=== PATIENT | male | born 1985 | race African-American/Black ===

== ENCOUNTER 2016-06-28 20:38 | Emergency (ER) | payer SELFPAY ==
[2016-06-28] MEDS ORDERED: NS 0.9% 1000 ML* 1,000 ML IV ONE (21:12)
--- NOTE | 2016-06-28 21:24 | ED ---
Influenza-Like Illness - HPI Summary HPI Summary: 31M presents with cough for a week. He states the over the week his symptoms have gotten worst. He admits to fatigue, weakness, decrease in appetite, and sore throat. He states he has chest pain when he coughs. He states that yesterday he passed out and today he passed out. He states before he passed out her felt he nauseous and lightheaded before his passed out. He states that he has passed out before when he was sick. He denies any head trauma with passing out. He states he has had this dry cough. He states his coworkers are sick with similar symptoms. He denies any SOB, n/v/d, or abdominal pain. - History of Current Complaint Chief Complaint: EDGeneral Time Seen by Provider: 06/28/16 21:00 - Allergy/Home Medications Allergies/Adverse Reactions: Allergies Allergy/AdvReac Type Severity Reaction Status Date / Time Penicillins Allergy Unknown Verified 05/27/15 12:02 Reaction Details Shellfish Allergy Allergy Difficulty Verified 05/27/15 12:02 Breathing PMH/Surg Hx/FS Hx/Imm Hx Endocrine/Hematology History: Denies: Hx Diabetes, Hx Thyroid Disease Cardiovascular History: Denies: Hx Hypertension Respiratory History: Denies: Hx Asthma, Hx Chronic Obstructive Pulmonary Disease (COPD) GI History: Denies: Hx Ulcer - Surgical History Surgery Procedure, Year, and Place: collar bone (left), lung puncture repair Infectious Disease History: No Infectious Disease History: Denies: Hx Clostridium Difficile, Hx Hepatitis, Hx Human Immunodeficiency Virus (HIV), Hx of Known/Suspected MRSA, Hx Shingles, Hx Tuberculosis, Hx Known/ Suspected VRE, Hx Known/Suspected VRSA, History Other Infectious Disease, Traveled Outside the [place] in Last 30 Days - Family History Known Family History: Positive: Hypertension Family History: NON CONTRIBUTORY - Social History Alcohol Use: Rare Substance Use Type: Reports: Marijuana Substance Use Comment - Amount & Last Used: three days ago Smoking Status (MU): Never Smoked Tobacco Type: Cigars Have You Smoked in the Last Year: No Review of Systems Negative: Fever Positive: Chest Pain - with coughing, wall pain Positive: Cough. Negative: Shortness Of Breath Negative: Abdominal Pain, Vomiting, Diarrhea, Nausea Positive: Syncope All Other Systems Reviewed And Are Negative: Yes Physical Exam Triage Information Reviewed: Yes Vital Signs On Initial Exam: Initial Vitals Temp Pulse Resp BP Pulse Ox 99.2 F 75 16 111/59 97 06/28/16 20:40 06/28/16 20:40 06/28/16 20:40 06/28/16 20:40 06/28/16 20:40 Vital Signs Reviewed: Yes Appearance: Positive: Ill-Appearing Skin: Positive: Warm, Dry Head/Face: Positive: Normal Head/Face Inspection Eyes: Positive: Normal, Conjunctiva Clear ENT: Positive: Normal ENT inspection, Pharynx normal, TMs normal Neck: Positive: Supple, Nontender, No Lymphadenopathy Respiratory/Lung Sounds: Positive: Clear to Auscultation, Breath Sounds Present , Other - neg egophony Cardiovascular: Positive: Normal, RRR Abdomen Description: Positive: Nontender, Soft Bowel Sounds: Positive: Present Neurological: Positive: Sensory/Motor Intact, Alert, Oriented to Person Place, Time, CN Intact II-III Diagnostics - Vital Signs Vital Signs Temp Pulse Resp BP Pulse Ox 06/28/16 20:40 99.2 F 75 16 111/59 97 - Laboratory Result Diagrams: 06/28/16 21:20 06/28/16 21:20 Lab Statement: Any lab studies that have been ordered have been reviewed, and results considered in the medical decision making process. - Radiology chest Xray Interpretation: No Acute Changes Radiology Interpretation Completed By: Radiologist - EKG 1st Cardiac Rate: NL EKG Rhythm: Sinus Rhythm ST Segment: Normal Ectopy: None Flu Symptom Course/Dx - Course Course Of Treatment: 31M presents with cough, fatigue, weakness for a week. states others sick with similiar symptoms. also passed out once today and once yesterday. normal PE exam. EKG normal for age. labs normal, flu positive, chest xray normal. gave fluids. discussed out of range to treat for flu. will give tessalon for cough. patient understands and agrees with plan. - Diagnoses Differential Diagnosis/HQI/PQRI: Positive: Bronchitis, Influenza, Pneumonia, Upper Respiratory Infection Provider Diagnoses: Influenza Discharge - Discharge Plan Condition: Good Disposition: HOME Prescriptions: Benzonatate CAP* [Tessalon 100 MG CAP*] 100 mg PO TID PRN #15 cap PRN Reason: Cough Patient Education Materials: Influenza (ED) Referrals: [facility] [Outside] Additional Instructions: Use Tessalon three times a day for cough Use humidifier or place warm bowls of water around the room Use Tylenol or ibuprofen every 6 hours for muscle aches and fevers Establish care with primary care physician Return to ED if develop any new or worsening symptoms
[2016-06-28 21:27] LABS: Hematocrit 42 % (42-52); Hemoglobin 14.1 g/dl (14.0-18.0); Mean Corpuscular HGB Conc 34 g/dl (31-36); Mean Corpuscular Hemoglobin 29 pg (27-31); Mean Corpuscular Volume 87 fL (80-94); Mean Platelet Volume 8 um3 (7.4-10.4); Red Blood Count 4.82 10^6/ul (4.0-5.4); Red Cell Distribution Width 14 % (10.5-15); White Blood Count 6.2 10^3/ul (3.5-10.8)
[2016-06-28 21:42] LABS: Albumin 4.1 g/dL (3.2-5.2); Calcium 8.9 mg/dL (8.6-10.3); EGFR African American 138.9 (>60); Globulin 2.9 g/dL (2-4); Potassium 3.8 mmol/L (3.5-5.0); Total Bilirubin 0.6 mg/dL (0.2-1.0)
--- NOTE | 2016-06-28 21:42 | RAD ---
INDICATION: Cough COMPARISON: November 27, 2013 TECHNIQUE: PA and lateral dual-energy views were obtained. FINDINGS: Bones/Soft Tissues: There are no acute bony findings. Cardiomediastinal: The cardiomediastinal silhouette is normal. Lungs: There are no infiltrates. Pleura: There are no pleural effusions. Other: None IMPRESSION: NO ACTIVE DISEASE.
[2016-06-28] MEDS ORDERED: Acetaminophen TAB* 325 MG PO ONE (21:46)
[2016-06-28] MEDS ORDERED: Benzonatate CAP* 100 MG PO ONE (22:08)
[2016-06-28 22:24] VITALS: BP 126/63
== END 2016-06-28 22:26 | disposition home or self-care (01) ==
LOC: ED 20:38
DX: J11.1 Influenza due to unidentified influenza virus with other respiratory manifestations (principal); R05 Cough; R07.9 Chest pain, unspecified
CPT/HCPCS: 36415; 71020; 80053; 85025; 87502; 93005; 99283; A9270-GY